=== PATIENT | female | born 1980 | race Caucasian/White ===

== ENCOUNTER 2022-01-20 13:50 | Emergency (ER) | payer MEDICARE, MEDICAID, SELFPAY ==
--- NOTE | 2022-01-20 13:58 | ED.WOUNDLAC ---
HPI - Wound/Laceration General Chief Complaint: Wound/Laceration Stated Complaint: laceration right leg Time Seen by Provider: 01/20/22 13:59 Source: patient Mode of arrival: ambulatory Limitations: no limitations History of Present Illness HPI narrative: Homa is a 41-year-old female patient presenting to clinic today with complaints of a laceration to her right leg. She reports she cut her leg 1 week ago. Area is red and swollen the where she cut her leg and she thinks it may be infected. Tetanus is up-to-date within the last year. Related Data Home Medications Medication Instructions Recorded Confirmed albuterol sulfate 90 mcg/actuation 1 inhalation inhalation Q4H 02/26/19 02/22/21 aerosol inhaler (Ventolin HFA) amitriptyline 100 mg tablet 100 mg PO ONCE 02/26/19 02/22/21 aspirin 81 mg tablet,delayed 81 mg PO DAILY 02/26/19 02/22/21 release atenolol 25 mg tablet 25 mg PO DAILY 02/26/19 02/22/21 clonazepam 1 mg tablet 1 mg PO DAILY 02/26/19 02/22/21 cyclobenzaprine 10 mg tablet 10 mg PO TID 02/26/19 02/22/21 montelukast 10 mg tablet 10 mg PO DAILY 02/26/19 02/22/21 omeprazole 10 mg capsule,delayed 10 mg PO DAILY 02/26/19 02/22/21 release ondansetron HCl 4 mg tablet 4 mg PO Q8H 02/26/19 02/22/21 pregabalin 200 mg capsule (Lyrica) 200 mg PO BID 02/26/19 02/22/21 pseudoephedrine HCl 30 mg tablet 30 mg PO Q4-6H PRN 02/26/19 02/22/21 (Sudafed) calcium citrate 250 mg PO DAILY 02/27/19 02/22/21 cetirizine 10 mg tablet (Zyrtec) 10 mg PO DAILY 02/27/19 02/22/21 [id number]-[id number]-[id number] tablet 1 tablet PO DAILY 02/27/19 02/22/21 rivaroxaban 15 mg tablet (Xarelto) 15 mg PO DAILY 02/27/19 02/22/21 sumatriptan succinate 50 mg tablet 50 mg PO ONCE 12/18/19 12/13/21 iloperidone 2 mg tablet (Fanapt) 2 mg PO BID 01/30/20 02/22/21 dicyclomine 20 mg tablet 20 mg PO BID 08/11/21 famotidine 40 mg tablet (Pepcid) 40 mg PO DAILY 08/11/21 amlodipine 10 mg tablet mg 01/20/22 colestipol 1 gram tablet g PO 01/20/22 ezetimibe 10 mg tablet mg 01/20/22 sertraline 100 mg tablet mg 01/20/22 topiramate 50 mg tablet mg 01/20/22 Allergies Allergy/AdvReac Type Severity Reaction Status Date / Time No Known Allergies Allergy Verified 01/20/22 14:00 Review of Systems Review of Systems: Pertinent positives per HPI. Patient denies any fever, chills, rash, headache, visual changes, dizziness, cough, runny nose, sore throat, shortness of breath, chest pain, palpitations, nausea, vomiting, diarrhea, constipation, abdominal pain, or any urinary issues. 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 History of DVT (deep vein thrombosis) Other pulmonary embolism without acute cor pulmonale Tobacco abuse counseling Surgical History Surgical History H/O cataract removal with insertion of prosthetic lens H/O endoscopy Family History Family History Sibling Hypertension Family history of malignant neoplasm Father Family history of cardiovascular disease Depression Hypertension Family history of congestive heart failure Social History Social History Smoking status: Current every day smoker (Vape) Smoking end date: 03/13/16 Alcohol intake: never Comments At the time of my signature, I reviewed and agree with the nursing past medical, surgical, social, and family history. There is no relevant family history pertinent to the patient complaint. Exam Narrative: General: Well-developed, well nourished, in no apparent distress Head: Normocephalic, atraumatic. Cardio: Regular rate and rhythm, s1 and s2 normal, no murmur appreciated. Resp: Clear to auscultation bilaterally, no rhonchi, rales,
[2022-01-20 14:01] VITALS: BP 118/74; PULSE 77; RESP 16; TEMP 36.5; O2SAT 98
[2022-01-20 14:03] VITALS: BP 118/74; PULSE 77; RESP 16; TEMP 36.5; O2SAT 98
== END 2022-01-20 14:26 | disposition home or self-care (01) ==
PROVIDERS: Emergency Provider Nurse Practitioner Family; PCP Family Medicine
DX: S81.821A Laceration with foreign body, right lower leg, initial encounter (principal); L08.9 Local infection of the skin and subcutaneous tissue, unspecified; W45.8XXA Other foreign body or object entering through skin, initial encounter; I10 Essential (primary) hypertension; M79.7 Fibromyalgia; Z86.718 Personal history of other venous thrombosis and embolism; Z86.711 Personal history of pulmonary embolism; Z98.49 Cataract extraction status, unspecified eye; Z96.1 Presence of intraocular lens; F17.290 Nicotine dependence, other tobacco product, uncomplicated; Z79.82 Long term (current) use of aspirin
CPT/HCPCS: 99213; G0463

== ENCOUNTER 2022-08-28 05:03 | Emergency (ER) | payer OTHER, MEDICARE, MEDICAID, SELFPAY ==
[2022-08-28 05:12] VITALS: BP 120/78; PULSE 69; RESP 14; TEMP 36.4; O2SAT 100
--- NOTE | 2022-08-28 06:07 | ED.WOUNDLAC ---
HPI - Wound/Laceration General Chief Complaint: Wound/Laceration Stated Complaint: Laceration L forearm Time Seen by Provider: 08/28/22 06:04 History of Present Illness HPI narrative: Patient presents from work after she accidentally sliced her arm with a box printer 4 hours ago. No focal numbness or weakness, she is able to move her arm without issues. Tetanus shot is up-to-date. Related Data Home Medications Medication Instructions Recorded Confirmed albuterol sulfate 90 mcg/actuation 1 inhalation inhalation Q4H 02/26/19 02/22/22 aerosol inhaler (Ventolin HFA) amitriptyline 100 mg tablet 100 mg PO ONCE 02/26/19 02/22/22 aspirin 81 mg tablet,delayed 81 mg PO DAILY 02/26/19 02/22/22 release atenolol 25 mg tablet 25 mg PO DAILY 02/26/19 02/22/22 clonazepam 1 mg tablet 1 mg PO DAILY 02/26/19 02/22/22 cyclobenzaprine 10 mg tablet 10 mg PO TID 02/26/19 02/22/22 montelukast 10 mg tablet 10 mg PO DAILY 02/26/19 02/22/22 omeprazole 10 mg capsule,delayed 10 mg PO DAILY 02/26/19 02/22/22 release ondansetron HCl 4 mg tablet 4 mg PO Q8H 02/26/19 02/22/22 pregabalin 200 mg capsule (Lyrica) 200 mg PO BID 02/26/19 02/22/22 pseudoephedrine HCl 30 mg tablet 30 mg PO Q4-6H PRN 02/26/19 02/22/22 (Sudafed) calcium citrate 250 mg PO DAILY 02/27/19 02/22/22 cetirizine 10 mg tablet (Zyrtec) 10 mg PO DAILY 02/27/19 02/22/22 upfbcnvjupxz-[id number]-pjrpnr tablet 1 tablet PO DAILY 02/27/19 02/22/22 rivaroxaban 15 mg tablet (Xarelto) 15 mg PO DAILY 02/27/19 02/22/22 sumatriptan succinate 50 mg tablet 50 mg PO ONCE 02/27/19 02/22/22 iloperidone 2 mg tablet (Fanapt) 2 mg PO BID 01/30/20 02/22/22 dicyclomine 20 mg tablet 20 mg PO BID 08/11/21 02/22/22 famotidine 40 mg tablet (Pepcid) 40 mg PO DAILY 08/11/21 02/22/22 amlodipine 10 mg tablet mg 01/20/22 02/22/22 colestipol 1 gram tablet g PO 01/20/22 02/22/22 ezetimibe 10 mg tablet mg 01/20/22 02/22/22 sertraline 100 mg tablet mg 01/20/22 02/22/22 topiramate 50 mg tablet mg 01/20/22 02/22/22 Allergies Allergy/AdvReac Type Severity Reaction Status Date / Time No Known Allergies Allergy Verified 02/22/22 14:29 Review of Systems Review of Systems: CONST: No fever. HEENT: No sore throat C/V: No chest pain RESP: No cough GI: No nausea vomit : No dysuria. 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 History of DVT (deep vein thrombosis) Other pulmonary embolism without acute cor pulmonale Tobacco abuse counseling Surgical History Surgical History H/O cataract removal with insertion of prosthetic lens H/O endoscopy History of gastric surgery Family History Family History Sibling Hypertension Family history of malignant neoplasm Father Family history of cardiovascular disease Depression Hypertension Family history of congestive heart failure Social History Social History Smoking status: Current every day smoker (Vape) Smoking end date: 03/13/16 Alcohol intake: never Exam Narrative: EXAMINATION OF ORGAN SYSTEMS/BODY AREAS: Constitutional: Vital signs per nursing GENERAL:[No acute distress, non-toxic appearing.] HEAD: Normal with no signs of head trauma. EYES: EOMI, conjunctiva normal ENT: Hearing grossly intact LUNGS: Nonlabored breathing. HEART: [Regular rate and rhythm] ABD: [Soft], [nontender to palpation] EXT: Normal range of motion, no signs of tendon injury, normal radial pulses and perfusion, no sensation deficit SKIN: 3 cm laceration through subcutaneous/fat without tendon or vascular injury NEURO: [Alert and oriented x 3. No gross focal sensory or strength defi
== END 2022-08-28 06:55 | disposition home or self-care (01) ==
PROVIDERS: Emergency Provider Emergency Medicine; PCP Family Medicine
DX: S51.812A Laceration without foreign body of left forearm, initial encounter (principal); I10 Essential (primary) hypertension; Z86.718 Personal history of other venous thrombosis and embolism; W27.0XXA Contact with workbench tool, initial encounter
CPT/HCPCS: 12002; 99282